=== PATIENT | female | born 1980 ===

== ENCOUNTER 2017-03-12 14:48 | Inpatient (IN) | payer BC, MEDICAID ==
[2017-03-12] MEDS ORDERED: Promethazine HCl 25 MG/ML VIAL IM PRN ×2 (16:16→17:33)
[2017-03-12] MEDS ORDERED: Lidocaine 1% (PF) 30 ML VIAL SC PRN (16:16)
[2017-03-12] MEDS ORDERED: Ondansetron HCl/PF 4 MG/2 ML Vial IVP PRN ×2 (16:16→17:33)
[2017-03-12] MEDS ORDERED: LR / Pitocin 40 units/1000 ml 1,000 ML IV PRN (16:16)
[2017-03-12 16:54] LABS: Hematocrit 33.4 % (36.0-47.0); Mean Platelet Volume 8.3 fL (7.4-10.4); Red Blood Cell (RBC) Count 3.78 mill/uL (4.20-5.40); White Blood Cell (WBC) Count 9.6 thou/uL (4.8-10.8)
[2017-03-12] MEDS ORDERED: Fentanyl 4 mcg/Marc 0.1% Cadd 100 ML ONE (16:59)
[2017-03-12] MEDS: Lactated Ringer's 1,000 ML IV SCH ×2 (17:25→18:34)
[2017-03-12] MEDS ORDERED: Eucerin (Mineral Oil/Petrolatum,White) 30 gm Jar TOP PRN (17:33)
[2017-03-12] MEDS ORDERED: Acetaminophen 325 MG TAB PO PRN (17:33)
[2017-03-12] MEDS ORDERED: Lactated Ringer's 500 ML IV PRN (17:33)
[2017-03-12] MEDS ORDERED: diphenhydrAMINE 50 MG/ML VIAL IVP PRN (17:33)
[2017-03-12] MEDS ORDERED: ePHEDrine/0.9% NaCl/PF SYRINGE 50 mg/10 ml SLOW IVP PRN (17:33)
[2017-03-12] MEDS ORDERED: Naloxone HCl 0.4 mg/ml Vial IVP PRN ×2 (17:33)
[2017-03-12] MEDS ORDERED: Communication Order-Pharmacy FS SCH (17:45)
[2017-03-12] MEDS ORDERED: Fentanyl 4mcg/Marcaine 0.1% Cassette 100 ML EPIDURAL SCH (17:45)
--- NOTE | 2017-03-12 18:26 | PDOC.LDPN ---
Labor & Delivery Progress Note - Subjective Subjective: comfortable - Objective Vital signs reviewed and normal: yes General: NAD, resting Uterine fundus: palpable contractions Dilation: 6 Effacement: 75% Station: -2 FHT: category 1, variability present [place] contractions every: [id number] - Assessment (1) Post-dates Code(s): O48.0 - POST-TERM Current Visit: Yes Status: Acute Comment: 37yo at 41.6 by 12.2w sono not consistent with LMP in active labor 1. sIUP: maternal labs wnl, late to care 2. Maternal hx: unremarkable, 2 prior without complications 3. Ctx spacing out, will augment with pitocin and continue q2h cervical checks. Cat 1 strip. Patient comfortable with epidural in place. Continue routine care for . Plan: continue plan of care, labor augmentation, pitocin for augmentation
[2017-03-12] MEDS ORDERED: LR 500 ML/Oxytocin 10 units 500 ML IV SCH (18:30)
[2017-03-12 18:39] VITALS: BMI 39.6
--- NOTE | 2017-03-12 18:41 | ULT ---
SONOGRAPHIC BIOPHYSICAL PROFILE EXAM: History: Decreased movement. FINDINGS: At sonography, good gross movement, tone, and breathing movements were demonstrated. Amniotic f luid index equals 7.9. IMPRESSION: Sonographic biophysical profile score is 8/8. POS: [place]
--- NOTE | 2017-03-12 19:53 | PDOC.LDPN ---
Labor & Delivery Progress Note - Subjective Subjective: comfortable (Epidural in place), no concerns (Still Intact) - Objective Vital signs reviewed and normal: yes General: NAD, resting, breathing through contractions Uterine fundus: palpable contractions SVE: per Nurse @ 2014. Dilation: 7 Effacement: 90% Station: -1 FHT: category 2 (2 Late Decelerations with minimal HR 120's. Responded to repositioning of patient. ), variability present Plan: pitocin for augmentation (Pit @ 2. CTX q3-5min) -: This is a @ 41.6 presented for Pitocin IOL for post-dates. Continue current management GBS negative AMA Inconsistent PNC.
--- NOTE | 2017-03-12 21:55 | PDOC.LDPN ---
Labor & Delivery Progress Note - Subjective Subjective: comfortable - Objective Vital signs reviewed and normal: yes General: NAD Uterine fundus: palpable contractions Dilation: 8.5 Effacement: 90% Station: -1 FHT: category 1 [place] contractions every: q3-5min AROM: clear fluid Resuscitative measures: maternal position change - Assessment (1) Post-dates Code(s): O48.0 - POST-TERM Current Visit: Yes Status: Acute Comment: 37yo at 41.6 by 12.2w sono not consistent with LMP in active labor 1. sIUP: maternal labs wnl, late to care 2. Maternal hx: unremarkable, 2 prior without complications 3. Ctx regular, continue augment with pitocin and continue q2h cervical checks. Cat 1 strip. Patient comfortable with epidural in place. Continue routine care for . AROM with clear fluid. Variable decels immediately post AROM. Will continue to monitor. Plan: continue plan of care, labor augmentation, pitocin for augmentation
[2017-03-12] MEDS ORDERED: Bisacodyl 10 MG SUPP PR PRN (22:24)
[2017-03-12] MEDS ORDERED: Preparation H Ointment 28 GM TUBE PR PRN (22:24)
[2017-03-12] MEDS ORDERED: diphenhydrAMINE 25 MG CAP PO PRN (22:24)
[2017-03-12] MEDS ORDERED: Milk Of Magnesia 30 ML UDCUP PO PRN (22:24)
[2017-03-12] MEDS ORDERED: Adacel (T-DAP) 0.5 ML VIAL IM ONE (22:24)
[2017-03-12] MEDS ORDERED: Lanolin Ointment 7 GM TUBE TOP PRN (22:24)
[2017-03-12] MEDS ORDERED: LR / Pitocin 40 units/1000 ml 1,000 ML IV SCH (22:30)
--- NOTE | 2017-03-13 00:01 | PDOC.EVN ---
Event Note - Event Note Event Note: Called to delivery of Ms. Garza, a 37 y/o at 41 6/7 weeks by 12 week u/s who was late to care at 37 weeks who presented in active labor today. Was augmented with pitocin and progressed to complete. Delivered a vigorous female over intact perineum in OA position. Nuchal cord x 1 delivered through. Delayed cord clamping performed. Placenta and 3V cord delivered intact. True knot seen in cord. Terminal meconium noted. Fundus firm with pitocin and bimanual massage. EBL 250ml. 1st degree perineal lac was hemostatic. No cervical lacs. Patient tolerated procedure well without complication.
[2017-03-13] MEDS: Ibuprofen 800 MG TAB PO SCH ×3 (01:18→14:19)
[2017-03-13 05:26] LABS: Hematocrit 30.2 % (36.0-47.0); Mean Platelet Volume 8.1 fL (7.4-10.4); Red Blood Cell (RBC) Count 3.36 mill/uL (4.20-5.40); White Blood Cell (WBC) Count 10.8 thou/uL (4.8-10.8)
--- NOTE | 2017-03-13 07:37 | PDOC.PP ---
Post Progress Note Post Day #: 1 Subjective: Patient doing well. Wants to go home. Is up and dressed today. Has walked around. Lochia wnl. Urinating normally. Pain is well controlled. PO intake tolerated: yes Flatus: no Ambulation: no Vital Signs (12 hours) Temp Pulse Resp BP Pulse Ox 03/13/17 04:00 98.7 F 81 20 118/57 L 03/13/17 03:13 98.9 F 76 18 03/13/17 01:30 98.9 F 76 18 106/58 L 03/13/17 00:30 98.8 F 76 18 133/63 98 03/12/17 22:24 98.2 F 85 18 132/58 L Weight Weight 95.254 kg - Physical Examination General: NAD Cardiovascular: no m/r/g, RRR Respiratory: clear to auscultation bilaterally, non-labored breathing Abdominal: + bowel sounds, lochia, no distention, appropriately TTP Fundus firm & at: 1cm below umbilicus Extremities: negative homans (B) Neurological: no gross focal deficits Psychiatric: A&Ox3, normal affect Result Diagrams: 03/13/17 05:05 Additional Labs: Post Labs Blood Type O POSITIVE 03/12/17 16:35 Hep Bs Antigen Non-Reactive S/CO (NonReactive) 03/12/17 16:46 (1) Post-dates Code(s): O48.0 - POST-TERM Status: Acute Comment: 37yo at 41.6 by 12.2w sono not consistent with LMP presented in active labor, delivered via at 2211. 1. sIUP: maternal labs wnl, late to care 2. Maternal hx: unremarkable, 2 prior without complications 3. Doing well this morning, will encourage ambulation. Pain well controlled. Likely d/c home tomorrow. <Colleen Elaine - Last Filed: 03/14/17 21:56> Weight Weight 95.254 kg Result Diagrams: 03/13/17 05:05 Additional Labs: Post Labs Blood Type O POSITIVE 03/12/17 16:35 Hep Bs Antigen Non-Reactive S/CO (NonReactive) 03/12/17 16:46 <Dallas Mckeon - Last Filed: 03/14/17 21:59> Attending Addendum - Attending Addendum I personally evaluated the patient and discussed the management with Dr. Elaine. I agree with the History, Examination, Assessment and Plan documented above with any addition or exceptions noted below. <Dallas Mckeon - Last Filed: 03/14/17 21:59>
[2017-03-13] MEDS ORDERED: Ferrous Sulfate 325 MG TAB PO SCH (08:00)
[2017-03-13 08:54] VITALS: BP 127/60
[2017-03-13] MEDS ORDERED: Docusate (Surfak) 240 MG CAP PO SCH (09:00)
[2017-03-13] MEDS ORDERED: Prenatal Vitamin 1 TAB PO SCH (09:00)
[2017-03-13] MEDS: Lactated Ringer's 1,000 ML IV SCH (10:01)
[2017-03-13 11:49] VITALS: TEMP 99
--- NOTE | 2017-03-14 13:00 | DN-2 ---
DELIVERING PHYSICIAN: Colleen Elaine D.O. ATTENDING PHYSICIAN: Alysha Wiseman M.D. PROCEDURE: Spontaneous vaginal delivery. ANESTHESIA: Epidural, local for repair. ESTIMATED BLOOD LOSS: 250 mL. PREOPERATIVE DIAGNOSES: 1. Post-dates intrauterine in labor. 2. Advanced maternal age. 3. . POSTOPERATIVE DIAGNOSES: 1. Post-dates intrauterine , delivered. 2. Advanced maternal age. 3. . INDICATIONS: A 37-year-old female G3, P2 presented to latent labor, and scheduled for induction caio belle. After reviewing her dating with records sent to the office received today, patient is 41 and 6 , therefore, requires induction prior to post-date or late term . DELIVERY NOTE: This is a 37-year-old female G3, P2-0-0-2 at 41.6 weeks who delivered a viable female infant at 2211 hours. Following an uneventful antepartum course, a vigorous female was delivered ov er an intact perineum in the occipital anterior position. Anterior shoulder and then remainder of rhonda dy was delivered. Nuchal cord x1. A true knot was noticed in the umbilical cord. The head was held down and mouth and nares were bulb suctioned. Allowed for delayed cord clamping and placed the baby skin to skin. Cord was clamped and cut and cord blood collected. Placenta delivered intact with a 3-vessel cord noted. Fundal massage was performed and fundus was firm. The cervix and vagina were i nspected and found to be free of significant lacerations. A small first degree perineal laceration w as noted and found to be hemostatic as well as a side wall vaginal lac. went to remain on mom for skin to skin and later went to nursery in good condition for routine care. Apgars were 8 and 8 at 1 and 5 minutes, respectively. The patient tolerated delivery well and went to post-partu m after routine recovery.
== END 2017-03-13 16:40 | disposition home or self-care (01) | DRG 775 ==
LOC: L&D/OP 14:48 → L&D 17:49 → 3SW 03-13 00:28
PROVIDERS: ADMIT Family Medicine; ATTEND Family Medicine
PROC: 3E0P3VZ Introduction of Hormone into Female Reproductive, Percutaneous Approach (ICD-10-PCS; principal; 2017-03-12)
PROC: 10E0XZZ Delivery of Products of Conception, External Approach (ICD-10-PCS; 2017-03-12)
PROC: 10907ZC Drainage of Amniotic Fluid, Therapeutic from Products of Conception, Via Natural or Artificial Opening (ICD-10-PCS; 2017-03-12)
PROC: 0HQ9XZZ Repair Perineum Skin, External Approach (ICD-10-PCS; 2017-03-12)
DX: O48.0 Post-term pregnancy (principal); O69.2XX0 Labor and delivery complicated by other cord entanglement, with compression, not applicable or unspecified; Z37.0 Single live birth; Z3A.41 41 weeks gestation of pregnancy; O69.81X0 Labor and delivery complicated by cord around neck, without compression, not applicable or unspecified; O70.0 First degree perineal laceration during delivery
CPT/HCPCS: 36415; 76815; 76819; 85027; 86780; 87340; J2001; J7120